=== PATIENT | female | born 1965 | race Caucasian/White ===

== ENCOUNTER 2022-11-16 12:44 | Emergency (ER) | payer BC, SELFPAY ==
[2022-11-16 12:47] VITALS: BP 147/80; PULSE 79; RESP 16; TEMP 36.4; O2SAT 98; BMI 24.3
--- NOTE | 2022-11-16 13:20 | DI.CT.S_ITS ---
PROCEDURE: CT HEAD/BRAIN WO CON INDICATIONS: GLF/HEAD INJ/CONFUSED TECHNIQUE: Noncontrast 4.5 mm thick angled axial sections acquired from the foramen magnum to the vertex, with coronal and sagittal reformats. For radiation dose reduction, the following was used: automated exposure control, adjustment of mA and/or kV according to patient size. COMPARISON: None. FINDINGS: Image quality: Excellent. CSF spaces: Basal cisterns are patent. No extra-axial fluid collections. Ventricles are normal in size and shape. Brain: No midline shift. No intracranial masses or hemorrhage. Fitzpatrick-white matter interface is normal. Skull and face: Calvarium and visualized facial bones are intact, without suspicious lesions. Sinuses: Mucosal thickening of the maxillary sinuses. Visualized sinuses and mastoids are otherwise clear. IMPRESSION: No acute intracranial abnormalities. Dictated by: Alex Johnston M.D. on 11/16/2022 at 13:50 Approved by: Alex Johnston M.D. on 11/16/2022 at 13:51
--- NOTE | 2022-11-16 13:21 | ED_ITS ---
HPI - Fall General Chief Complaint: Fall Stated Complaint: had a fall/ vomitting/balance is off/mood changes Time Seen by Provider: 11/16/22 12:53 Source: patient Mode of arrival: Ambulatory History of Present Illness HPI Narrative: 57-year-old female presents with her son for head injury. Patient was walking outside with a neighbor and tripped and hit her head. Son states that since the patient fell and hit her head she is been acting abnormally and not like her usual self. He is concerned because his sister had a head injury and acted similarly and was diagnosed with a concussion. Patient is obviously confused, she is slow to respond, inappropriately responding to questions. If her she says she does not remember falling, then states that she definitely did not hit her head, then states that she is not certain if she passed out or not. Related Data Allergies Allergy/AdvReac Type Severity Reaction Status Date / Time No Known Drug Allergies Allergy Verified 11/16/22 12:47 Review of Systems Review of Systems ROS Unobtainable: Other Patient History Social History Smoking Status: Never smoker Smoking Status: Never smoker alcohol intake frequency: 0-2 drinks per day Substance Use Type: does not use Exam Initial Vital Signs Initial Vital Signs: Vital Signs Temperature 97.5 F L 11/16/22 12:47 Pulse Rate 79 11/16/22 12:47 Respiratory Rate 16 11/16/22 12:47 Blood Pressure 147/80 H 11/16/22 12:47 Pulse Oximetry 98 11/16/22 12:47 Oxygen Delivery Method Room Air 11/16/22 12:47 Const: Awake, alert, no acute distress, nontoxic appearing Eyes: PERRL, EOMI, conjunctiva normal ENT: Atraumatic, dentition normal, mucous membranes moist Cardiac: regular rate, regular rhythm RESP: unlabored, clear bilaterally, no wheezing GI: Atraumatic, soft, nontender, nondistended, no rebound, no guarding MSK: Atraumatic, full range of motion, pulses equal Skin: Warm, Dry, intact, no rashes Neuro: AO x2, CN II-XII grossly intact, moves all extremities Scores [place] CT Head Rule GCS < 15 at 2 hr post trauma: Yes Course Course Course Narrative: Altered mental status after ground level fall with head trauma. Will order CT brain. Son at bedside is very concerned that the patient is not acting normall y. We will also order labs and toxicology workup. Orders Ordered: ED Orders 11/16/22 13:20 CT head/brain wo con Stat 11/16/22 13:33 Urine Drug Screen, Rapid Stat 11/16/22 13:45 CBC Auto Diff [Complete Blood Count AUTO DIFF] Stat CMP [Comprehensive Metabolic Panel] Stat Ethanol (ETOH) Stat Reevaluation(s) Reevaluation #1: CT imaging negative for acute findings. Alcohol 359. Tox screen negative. Patient states she is not want any visitors, and she does not want her family to know the real reason she fell today. She declined resources for alcohol cessation. Vital Signs Vital signs: Vital Signs - 8 hr 11/16/22 12:47 11/16/22 14:16 Temperature 97.5 F L Pulse Rate 79 77 Respiratory Rate 16 18 Blood Pressure 147/80 H 134/83 Pulse Oximetry 98 100 Oxygen Delivery Method Room Air Room Air MDM - Fall Lab Data 11/16/22 13:45 11/16/22 13:45 Labs: Lab Results 11/16/22 11/16/22 11/16/22 Range/Units 13:33 13:45 13:45 WBC 11.0 (4.5-11.0) X10^3/uL RBC 4.50 (4.0-5.2) X10^6/uL Hgb 14.6 (12.0-16.0) g/dL Hct 43.1 (36-46) % MCV 95.8 (80-100) fL MCH 32.5 (26-34) PG MCHC 34.0 (30-36) % RDW 12.7 (11.6-14.8) % Plt Count 264 (150-400) X10^3/uL Neut % (Auto) 79.8 H (50-75) % Lymph % (Auto) 16.6 L (25-40) % [place] % (Auto) 2.6 L (3-14) % Eos % (Auto) 0.3 L (2-4) % Baso % (Auto) 0.7 (0-2) % Neut # (Auto) 8800 H (9997-1473) /uL Lymph # (Auto) 1800 (4155-8223) /uL [place] # (Auto) 300 (0-900) /uL Eos # (Auto) 0 (0-450) /uL Baso # (Auto) 100 (0-100) /uL Sodium 141 (137-145) mmol/L Potassium 4.0 (3.4-5.1) mmol/L Chloride 101 (98-107) mmol/L Carbon Dioxide 29 (22-32) mmol/L BUN 11 (7-17) mg/dL Creatinine 0.65 (0.52-1.04) mg/dL Estimated GFR > 60 (>60) mL/min BUN/Creatinine Ratio 16.9 (6-22) Glucose 127 H (70-100) mg/dL Calcium 9.5 (8.4-10.2) mg/dL Total Bilirubin 0.3 (0.2-1.3) mg/dL AST 34 (14-36) IU/L ALT 29 (<35) IU/L Alkaline Phosphatase 88 (38-126) U/L Total Protein 7.8 (6.3-8.2) g/dL Albumin 4.6 (3.5-5.0) g/dL Globulin 3.2 (1.7-4.1) g/dL Albumin/Globulin Ratio 1.4 (1.0-2.8) U Opiates 300ng/mL cut Negative (Negative) Ur Oxycodone Screen Negative (Negative) Urine Methadone Screen Negative (Negative) Ur Barbiturates Screen Negative (Negative) U Tricyclic Antidepress Negative (Negative) Ur Phencyclidine Scrn Negative (Negative) Ur Amphetamines Screen Negative (Negative) U Methamphetamines Scrn Negative (Negative) Ur MDMA Scrn (Ecstasy) Negative (Negative) U Benzodiazepines Scrn Negative (Negative) Urine Cocaine Screen Negative (Negative) U Marijuana (THC) Screen Negative (Negative) Ethyl Alcohol 359 H ( - 10) mg/dL Discharge Plan Departure Patient Disposition: Home Clinical Impression: Alcohol intoxication, Head injury Instructions: Blood Alcohol Level, Closed Head Injury Stand Alone Forms: Patient Portal/API
[2022-11-16 13:49] LABS: Add Manual Diff / Slide Review NO; Basophils Absolute Auto 100 /uL (0-100); Basophils Percent Auto 0.7 % (0-2); Eosinophils Absolute Auto 0 /uL (0-450); Eosinophils Percent Auto 0.3 % (2-4); Hematocrit 43.1 % (36-46); Hemoglobin 14.6 g/dL (12.0-16.0); Lymphocytes Absolute Auto 1800 /uL (1100-4500); Lymphocytes Percent Auto 16.6 % (25-40); Mean Corpuscular Hemoglobin 32.5 PG (26-34); Mean Corpuscular Volume 95.8 fL (80-100); Monocytes Absolute Auto 300 /uL (0-900); Monocytes Percent Auto 2.6 % (3-14); Neutrophils Absolute Auto 8800 /uL (1500-7000); Neutrophils Percent Auto 79.8 % (50-75); Platelet Count 264 X10^3/uL (150-400); Red Cell Distribution Width 12.7 % (11.6-14.8)
[2022-11-16 13:56] LABS: UR Morphine/Opiate cutoff 300 Negative (Negative); Ur Creatinine Normal (Normal); Ur Specific Gravity Normal (Normal); Urine Amphetamines Negative (Negative); Urine Barbiturates Negative (Negative); Urine Benzodiazepines Negative (Negative); Urine Cocaine Negative (Negative); Urine MDMA Negative (Negative); Urine Methadone Negative (Negative); Urine Methamphetamines Negative (Negative); Urine Oxycodone Negative (Negative); Urine Phencyclidine Negative (Negative); Urine Tetrahydrocannabinol Negative (Negative); Urine Tricyclic Antidepressant Negative (Negative); Urine pH Normal (Normal)
[2022-11-16 14:03] LABS: Alanine Aminotransferase 29 IU/L (<35); Albumin 4.6 g/dL (3.5-5.0); Albumin Globulin Ratio 1.4 (1.0-2.8); Alkaline Phosphatase 88 U/L (38-126); Aspartate Aminotransferase 34 IU/L (14-36); BUN Creatinine Ratio 16.9 (6-22); Bilirubin Total 0.3 mg/dL (0.2-1.3); Blood Urea Nitrogen 11 mg/dL (7-17); Calcium 9.5 mg/dL (8.4-10.2); Carbon Dioxide 29 mmol/L (22-32); Chloride 101 mmol/L (98-107); Estimated Glomerular Filt Rate > 60 mL/min (>60); Globulin 3.2 g/dL (1.7-4.1); Glucose 127 mg/dL (70-100); HEMOLYSIS < 15 (0-50); Sodium 141 mmol/L (137-145); Total Protein 7.8 g/dL (6.3-8.2)
[2022-11-16 14:12] LABS: Ethanol (ETOH) 359 mg/dL
--- NOTE | 2022-11-16 14:15 | PC.NURSE ---
Pt asks son to leave room. Shares with this RN that she had been drinking this morning. Unknown how much, but a lot. Pt does not want to seek any treatment for help. Provider made aware.
[2022-11-16 14:16] VITALS: BP 134/83; PULSE 77; RESP 18; O2SAT 100
== END 2022-11-16 14:25 | disposition home or self-care (01) ==
PROVIDERS: Emergency Provider Emergency Medicine
DX: S09.90XA Unspecified injury of head, initial encounter (principal); F10.129 Alcohol abuse with intoxication, unspecified; Y90.8 Blood alcohol level of 240 mg/100 ml or more; W18.30XA Fall on same level, unspecified, initial encounter
CPT/HCPCS: 70450; 80053; 80305; 80320; 85025; 99282; 99284

== ENCOUNTER → 2023-04-27 09:02 | Outpatient (CLI) | payer OTHER, SELFPAY ==
--- NOTE | 2023-04-27 | DI.RAD.S_ITS ---
PROCEDURE: XR HIP W PEL IF DONE RT 2V INDICATIONS: right hip pain TECHNIQUE: AP pelvis with lateral view(s) of the right hip(s). COMPARISON: None. FINDINGS: Bones: No fractures or dislocations. Pelvic ring appears intact. No suspicious bony lesions. Lgnr-[id number] bilateral axial hip joint space narrowing with periarticular osteophyte formation. Osseous prominence along the right femoral head/neck junction. Soft tissues: The visualized bowel gas pattern is normal. No suspicious soft tissue calcifications. IMPRESSION: 1. Moderate bilateral hip joint degeneration, right greater than left. 2. Osseous prominence along the head/neck junction on the right which can be associated with CAM type acetabular impingement in the appropriate clinical setting. If indicated, MRI could be performed for further assessment. Dictated by: Neftaly PEREZ Interpreted: Monika Pandey MD on 04/27/2023 at 9:25 Transcribed by: JULISSA on 04/27/2023 at 9:28 Approved by: Monika Pandey M.D. on 04/27/2023 at 14:55
== END ==
PROVIDERS: PCP Internal Medicine; Referring Provider Student in an Organized Health Care Education/Training Program; Visit Provider Student in an Organized Health Care Education/Training Program
DX: M16.0 Bilateral primary osteoarthritis of hip (principal); M25.551 Pain in right hip
CPT/HCPCS: 73502